=== PATIENT | female | born 1985 | race Hispanic/Latino ===

== ENCOUNTER 2019-05-19 13:28 | Inpatient (IN) | payer MEDICAID ==
--- NOTE | 2019-05-19 13:57 | Emergency Department Report ---
ED Seizure HPI - General Chief Complaint: Seizure Stated Complaint: SEIZURE Time Seen by Provider: 05/19/19 13:40 Source: patient, EMS Mode of arrival: Stretcher Limitations: No Limitations - History of Present Illness Initial Comments: Patient is a 33-year-old female that presents to the Emergency room for multiple seizures and seizure-like activity. Patient states she's had 35 seizures in the past 4 days. Patient states she was at her primary care's office today for her follow-up appointment and had a seizure and is waiting room and her primary care center to the ER for further evaluation. Patient states she has a known seizure history and she is compliant with all of her medications. Patient denies chest pain shortness of breath. Patient states she has panic attacks but these are seizures not panic attacks. Patient states she had another seizure on the way to the emergency room with EMS. Patient states she does not get confused after her seizures. Patient denies loss of bladder control. Patient denies any injuries from the seizure. Patient denies head trauma. MD Complaint: seizure, possible seizure, shaking -: Sudden Description of Episode: tonic-clonic movement -: second(s) Witnessed:: No Trauma: No Seizure History: known seizure disorder, compliant with medication Place: home, other Possible Precipitating Event: none Associated Symptoms: denies other symptoms. denies: chest pain, confusion, cough, diaphoresis, fever/chills, loss of appetite, malaise, rash, shortness of breath, syncope, weakness, tongue injury, shoulder dislocation Treatments Prior to Arrival: none - Related Data Home Medications Medication Instructions Recorded Confirmed Last Taken ARIPiprazole [Abilify TAB] 10 mg PO DAILY 09/13/15 09/13/15 Unknown Albuterol Sulfate [Albuterol 0.63% 90 mcg IH Q6HR PRN 09/13/15 09/13/15 Unknown NEBS] Carisoprodol [Soma] 350 mg PO TID 09/13/15 09/13/15 Unknown Cimetidine 300 mg PO BID 09/13/15 09/13/15 Unknown Clobetasol 0.05% [Temovate] 1 applic TRANSDERMA BID 09/13/15 09/13/15 Unknown Clobetasol/Skin Cleanser #28 1 applicatio TRANSDERMA TID 09/13/15 09/13/15 Unknown Cyanocobalamin [Vitamin B-12] 1,000 mcg IM QMONTH 09/13/15 09/13/15 Unknown Dicyclomine [Bentyl] 10 mg PO QID 09/13/15 09/13/15 Unknown Divalproex ER [Depakote ER] 500 mg PO BID 09/13/15 09/13/15 Unknown Mesalamine [Asacol Hd] 800 mg PO BID 09/13/15 09/13/15 Unknown Mesalamine [Asacol Hd] 800 mg PO TID 09/13/15 09/13/15 Unknown Mometasone/Formoterol [Dulera 100 2 puff IH BID 09/13/15 09/13/15 Unknown Mcg/5 Mcg Inhaler] Pantoprazole [Protonix INJ] 40 mg PO QDAY 09/13/15 09/13/15 Unknown Pravastatin Sodium [Pravastatin] 10 mg PO QHS 09/13/15 09/13/15 Unknown Sucralfate [Carafate] 1 gm PO Q6HR 09/13/15 09/13/15 Unknown Topiramate [Topamax] 25 mg PO BID 09/13/15 09/14/15 Unknown clonazePAM 0.5 mg PO TID 09/13/15 09/13/15 Unknown metOLazone [Metolazone] 2.5 mg PO QDAY 09/13/15 09/13/15 Unknown predniSONE [Deltasone] 20 mg PO DAILY 09/13/15 09/13/15 Unknown raNITIdine HCl [Zantac 300 MG TAB] 300 mg PO DAILY 09/13/15 09/13/15 Unknown Allergies Allergy/AdvReac Type Severity Reaction Status Date / Time latex Allergy Rash Verified 09/13/15 12:02 iodine AdvReac Severe Seizure Verified 09/13/15 12:02 ED Review of Systems ROS: Stated complaint: SEIZURE Other details as noted in HPI ED Past Medical Hx - Past Medical History Previous Medical History?: Yes Hx Congestive Heart Failure: No Hx Diabetes: No Hx GERD: Yes Hx Headaches / Migraines: Yes Hx Seizures: Yes Hx Psychiatric Treatment: Yes (eating disorders) Hx Asthma: Yes Hx COPD: No Additional medical history: anemia heart mumur. Crohn's. IBS - Surgical History Past Surgical History?: Yes Hx Cholecystectomy: Yes - Social History Smoking Status: Never Smoker Substance Use Type: None - Medications Home Medications: Home Medications Medication Instructions Recorded Confirmed Last Taken Type ARIPiprazole [Abilify TAB] 10 mg PO DAILY 09/13/15 09/13/15 Unknown History Albuterol Sulfate [Albuterol 0.63% 90 mcg IH Q6HR PRN 09/13/15 09/13/15 Unknown History NEBS] Carisoprodol [Soma] 350 mg PO TID 09/13/15 09/13/15 Unknown History Cimetidine 300 mg PO BID 09/13/15 09/13/15 Unknown History Clobetasol 0.05% [Temovate] 1 applic TRANSDERMA BID 09/13/15 09/13/15 Unknown History Clobetasol/Skin Cleanser #28 1 applicatio TRANSDERMA TID 09/13/15 09/13/15 Unknown History Cyanocobalamin [Vitamin B-12] 1,000 mcg IM QMONTH 09/13/15 09/13/15 Unknown History Dicyclomine [Bentyl] 10 mg PO QID 09/13/15 09/13/15 Unknown History Divalproex ER [Depakote ER] 500 mg PO BID 09/13/15 09/13/15 Unknown History Mesalamine [Asacol Hd] 800 mg PO BID 09/13/15 09/13/15 Unknown History Mesalamine [Asacol Hd] 800 mg PO TID 09/13/15 09/13/15 Unknown History Mometasone/Formoterol [Dulera 100 2 puff IH BID 09/13/15 09/13/15 Unknown Histor y Mcg/5 Mcg Inhaler] Pantoprazole [Protonix INJ] 40 mg PO QDAY 09/13/15 09/13/15 Unknown History Pravastatin Sodium [Pravastatin] 10 mg PO QHS 09/13/15 09/13/15 Unknown History Sucralfate [Carafate] 1 gm PO Q6HR 09/13/15 09/13/15 Unknown History Topiramate [Topamax] 25 mg PO BID 09/13/15 09/14/15 Unknown History clonazePAM 0.5 mg PO TID 09/13/15 09/13/15 Unknown History metOLazone [Metolazone] 2.5 mg PO QDAY 09/13/15 09/13/15 Unknown History predniSONE [Deltasone] 20 mg PO DAILY 09/13/15 09/13/15 Unknown History raNITIdine HCl [Zantac 300 MG TAB] 300 mg PO DAILY 09/13/15 09/13/15 Unknown History ED Physical Exam - General Limitations: No Limitations General appearance: alert, in no apparent distress - Head Head exam: Present: atraumatic, normocephalic - Eye Eye exam: Present: normal appearance - ENT ENT exam: Present: mucous membranes moist - Neck Neck exam: Present: normal inspection - Respiratory Respiratory exam: Present: normal lung sounds bilaterally. Absent: respiratory distress - Cardiovascular Cardiovascular Exam: Present: regular rate, normal rhythm. Absent: systolic murmur, diastolic murmur, rubs, gallop - GI/Abdominal GI/Abdominal exam: Present: soft, normal bowel sounds. Absent: distended, tenderness, guarding - Extremities Exam Extremities exam: Present: normal inspection - Back Exam Back exam: Present: normal inspection - Neurological Exam Neurological exam: Present: alert, oriented X3 - Psychiatric Psychiatric exam: Present: normal affect, normal mood - Skin Skin exam: Present: warm, dry, intact, normal color. Absent: rash ED Course Vital Signs 05/19/19 13:47 Temperature 98.6 F Pulse Rate 104 H Respiratory 18 Rate Blood Pressure 119/68 O2 Sat by Pulse 98 Oximetry - Reevaluation(s) Reevaluation #1: Patient has seizure activity that resolved on its own. Patient was not postictal and had no confusion. 05/19/19 15:01 Due to the amount of seizures the patient has had over the past week, patient will be admitted to her primary care service. Discussed all results with patient. Patient will be admitted to PCP. Patient agrees to plan of care. 05/19/19 15:28 - Consultations Consultation #1: Dr Marie consulted for admission. Dr Marie to admit patient. Dr. Marie to assume care patient. 05/19/19 15:29 ED Medical Decision Making - Lab Data Result diagrams: 05/19/19 14:08 05/19/19 14:08 - Medical Decision Making Patient is a 33-year-old female that presents to emergency room with multiple seizures. Patient has had 3 seizures today. Patient is total of 35 seizures over the past 4 days. Patient will be admitted to the patient's primary care service. Patient will require a neurology consult. - Differential Diagnosis seizure. Uncontrolled seizures. Critical care attestation.: If time is entered above; I have spent that time in minutes in the direct care of this critically ill patient, excluding procedure time. ED Disposition Clinical Impression: Seizure Uncontrolled seizures Qualifiers: Convulsion type: unspecified Qualified Code(s): R56.9 - Unspecified convulsions Disposition: OP ADMIT IP TO THIS HOSP Is pt being admited?: Yes Does the pt Need Aspirin: No Condition: Serious Time of Disposition: 15:33
[2019-05-19 14:24] LABS: Hematocrit 41.8 % (30.3-42.9); Mean Corpuscular HGB Conc 34 % (30-34); Mean Corpuscular Volume 89 fl (79-97); Platelet Count 265 K/mm3 (140-440); Red Cell Distribution Width 13.2 % (13.2-15.2)
[2019-05-19 14:41] LABS: BUN/Creatinine Ratio 8; Blood Urea Nitrogen 7 mg/dL (7-17); Calcium 8.5 mg/dL (8.4-10.2); Hemolysis Index 2
[2019-05-19] MEDS ORDERED: ATIVAN PO PRN (18:16)
--- NOTE | 2019-05-19 18:34 | History and Physical Report ---
History of Present Illness Date of examination: 05/19/19 Date of admission: 05/19/19 15:36 Chief complaint: Seizure d/o History of present illness: patient presented to the Office,for routine office visit, when she had epileptic type activity. EMS was called, and patient had another episode en route, as well as in the ER as per the ER doc. She is admitted for sxs control, and management. She sees DR Sergio bergeron, a neurologist, in [facility].She also has hx of multiple medical problems, including Inflamatory bowel Dz., and sees DR Brandon Lacy, GI.Will get a neurology consult, and order EEG, and check lytes./ including Mg+2 Past History Past Medical History: migraines, seizures Social history: single, lives with family Family history: no significant family history Medications and Allergies Allergies Allergy/AdvReac Type Severity Reaction Status Date / Time latex Allergy Rash Verified 09/13/15 12:02 iodine AdvReac Severe Seizure Verified 09/13/15 12:02 Home Medications Medication Instructions Recorded Confirmed Last Taken Type Pravastatin Sodium [Pravastatin] 30 mg PO QPM 09/13/15 05/19/19 Unknown History Topiramate [Topamax] 200 mg PO BID 09/13/15 05/19/19 05/19/19 History raNITIdine HCl [Zantac 300 MG TAB] 300 mg PO BID 09/13/15 05/19/19 Unknown History ALBUTEROL Inhaler (OR & NICU) 2 puff IH Q4H PRN 05/19/19 05/19/19 Unknown History [Proair] Acarbose [Precose] 25 mg PO TID 05/19/19 05/19/19 05/19/19 History Aspirin [Adult Aspirin] 81 mg PO QDAY 05/19/19 05/19/19 05/19/19 History Dicyclomine [Bentyl] 20 mg PO TID 05/19/19 05/19/19 Unknown History Divalproex [Sasha KATZ] 500 mg PO BID 05/19/19 05/19/19 05/19/19 History FLUoxetine [PROzac] 60 mg PO QAM 05/19/19 05/19/19 Unknown History Furosemide [Lasix] 20 mg PO QDAY 05/19/19 05/19/19 Unknown History LORazepam [Ativan] 1 mg PO TID PRN 05/19/19 05/19/19 Unknown History Levothyroxine [Synthroid] 75 mcg PO QAM 05/19/19 05/19/19 Unknown History Lisinopril [Zestril] 20 mg PO QDAY 05/19/19 05/19/19 Unknown History Mesalamine [Delzicol] 800 mg PO BID 05/19/19 05/19/19 Unknown History Mometasone/Formoterol [Dulera 100 2 puff IH BID 05/19/19 05/19/19 Unknown Histo ry Mcg/5 Mcg Inhaler] Verapamil [Calan] 240 mg PO QDAY 05/19/19 05/19/19 Unknown History amLODIPine [Norvasc] 5 mg PO DAILY 05/19/19 05/19/19 Unknown History cloNIDine-TTS PATCH [Catapres-Tts 1 patch TD Q7D 05/19/19 05/19/19 Unknown History 0.1MG Patch] l-Norgest/E.estradiol-E.estrad 1 each PO QPM 05/19/19 05/19/19 05/18/19 History [Seasonique 0.15-0.03-0.01 Tab] lamoTRIgine [LaMICtal] 50 mg PO BID 05/19/19 05/19/19 05/19/19 History Active Meds: Active Medications Amlodipine Besylate (Norvasc) 5 mg PO DAILY MARKIE Aspirin (Halfprin Ec) 81 mg PO QDAY MARKIE Clonidine HCl (Catapres-Tts Patch) 0.1 mg TD Q7D MARKIE Dicyclomine HCl (Bentyl) 20 mg PO TID MARKIE Divalproex Sodium (Depakote Dr) 500 mg PO BID MARKIE Fluoxetine HCl (Prozac) 60 mg PO QAM MARKIE Furosemide (Lasix) 20 mg PO QDAY MARKIE Lamotrigine (Lamictal) 50 mg PO BID MARKIE Levothyroxine Sodium (Synthroid) 75 mcg PO QAM MARKIE Lisinopril (Zestril) 20 mg PO QDAY MARKIE Lorazepam (Ativan) 1 mg PO TID PRN PRN Reason: Anxiety Mesalamine (Delzicol) 800 mg PO BID MARKIE Miscellaneous Medication (Acarbose [Precose]) 25 mg PO TID MARKIE Miscellaneous Medication (L-Norgest/E.Estradiol-E.Estrad [Seasonique 0.15-0.03-0.01 Tab]) 1 each PO QPM MARKIE Miscellaneous Medication (Mometasone/Formoterol [Dulera 100 Mcg/5 Mcg Inhaler]) 2 puff IH BID MARKIE Miscellaneous Medication (Pravastatin Sodium [Pravastatin]) 30 mg PO QPM MARKIE Miscellaneous Medication (Ranitidine Hcl [Zantac 300 Mg Tab]) 300 mg PO BID MARKIE Topiramate (Topamax) 200 mg PO BID MARKIE Verapamil HCl (Calan) 240 mg PO QDAY MARKIE Review of Systems Constitutional: weight gain Breasts: deferred Gastrointestinal: nausea, heartburn Neurological: seizures Exam - Constitutional Vitals: Temp Pulse Resp BP Pulse Ox 98.6 F 104 H 18 114/66 97 05/19/19 13:47 05/19/19 13:47 05/19/19 13:47 05/19/19 18:04 05/19/19 18:04 General appearance: Present: mild distress, well-nourished - EENT Eyes: Present: PERRL ENT: hearing intact, clear oral mucosa - Neck Neck: Present: supple, normal ROM - Respiratory Respiratory effort: normal Respiratory: bilateral: CTA - Cardiovascular Heart Sounds: Present: S1 & S2. Absent: rub, click - Extremities Extremities: pulses symmetrical, No edema Peripheral Pulses: within normal limits - Abdominal General gastrointestinal: Present: soft, non-tender, non-distended, normal bowel sounds Female genitourinary: Present: normal - Rectal Rectal Exam: deferred - Integumentary Integumentary: Present: clear, warm, dry - Musculoskeletal Musculoskeletal: gait normal, strength equal bilaterally - Psychiatric Psychiatric: appropriate mood/affect, intact judgment & insight - Neurologic Neurologic: CNII-XII intact, moves all extremities Results - Labs CBC & Chem 7: 05/19/19 14:08 05/19/19 14:08 Labs: Abnormal lab results 05/19/19 Range/Units 14:08 Carbon Dioxide 19 L (22-30) mmol/L Assessment and Plan - Patient Problems (1) Uncontrolled seizures Current Visit: Yes Status: Acute Qualifiers: Convulsion type: unspecified Qualified Code(s): R56.9 - Unspecified convulsions Plan to address problem: Neurology consult, EEG. (2) Crohns disease Current Visit: No Status: Chronic Plan to address problem: suportice care, consult GI if needed. (3) Weakness Current Visit: No Status: Acute Plan to address problem: supportive care.
[2019-05-19] MEDS ORDERED: CATAPRES-TTS PATCH TD SCH (19:30)
[2019-05-19] MEDS ORDERED: ACARBOSE 25 MG PO SCH (20:00)
[2019-05-19] MEDS: BROVANA NEBU IH SCH (20:09)
[2019-05-19] MEDS: PULMICORT IH SCH (20:09)
[2019-05-19] MEDS: BENTYL PO SCH (20:10)
[2019-05-19] MEDS ORDERED: NON-FORMULARY (Ranitidine Hcl [Zantac 300 Mg Tab] 300 MG) PO SCH (22:00)
[2019-05-19] MEDS ORDERED: NON-FORMULARY (Mometasone/Formoterol [Dulera 100 Mcg/5 Mcg Inhaler] 2 PUFF) IH SCH (22:00)
[2019-05-19] MEDS: D5/0.45NS 1,000 ML IV SCH (22:10)
[2019-05-19] MEDS: DELZICOL PO SCH (22:12)
[2019-05-19] MEDS: TOPAMAX PO SCH (22:13)
[2019-05-19] MEDS: PEPCID PO SCH (22:18)
[2019-05-19] MEDS: PRAVACHOL PO SCH (22:20)
[2019-05-19] MEDS: LaMICtal PO SCH (22:26)
[2019-05-20] MEDS: SYNTHROID PO SCH (05:38)
[2019-05-20] MEDS: LASIX PO SCH (05:39)
[2019-05-20] MEDS: D5/0.45NS 1,000 ML IV SCH ×3 (05:40→22:37)
[2019-05-20 06:50] LABS: Amorphous Crystals,Urine 3+; Bilirubin,Urine NEG (Negative); Blood,Urine NEG (Negative); Color,Urine Amber (Yellow); Mucus,Urine 1+ /HPF; Urobilinogen,Urine < 2.0 mg/dL (<2.0)
[2019-05-20 06:52] LABS: Granular Casts,Urine 10 /LPF; Hyaline Casts,Urine 23 /LPF
[2019-05-20 06:53] LABS: HCG Qualitative,Urine Negative (Negative)
[2019-05-20] MEDS: BROVANA NEBU IH SCH ×2 (08:01→19:25)
[2019-05-20] MEDS: PULMICORT IH SCH ×2 (08:01→19:25)
[2019-05-20] MEDS: TOPAMAX PO SCH ×2 (09:34→22:39)
[2019-05-20] MEDS: PROzac PO SCH (09:34)
[2019-05-20] MEDS: HALFPRIN EC PO SCH (09:35)
[2019-05-20] MEDS: NORVASC PO SCH (09:35)
[2019-05-20] MEDS: ZESTRIL PO SCH (09:35)
[2019-05-20] MEDS: PEPCID PO SCH ×2 (09:35→22:39)
[2019-05-20] MEDS: BENTYL PO SCH ×3 (09:36→20:18)
[2019-05-20] MEDS: DELZICOL PO SCH ×2 (09:36→22:38)
[2019-05-20] MEDS: CALAN SR PO SCH (09:37)
[2019-05-20] MEDS: LaMICtal PO SCH ×2 (09:37→22:38)
[2019-05-20] MEDS: NON-FORMULARY PO SCH ×3 (09:38→20:19)
[2019-05-20] MEDS ORDERED: CALAN PO SCH (10:00)
[2019-05-20] MEDS ORDERED: LASIX PO SCH (10:00)
--- NOTE | 2019-05-20 15:16 | Progress Note ---
Assessment and Plan - Patient Problems (1) Uncontrolled seizures Current Visit: Yes Status: Acute Qualifiers: Convulsion type: unspecified Qualified Code(s): R56.9 - Unspecified convulsions Plan to address problem: Neurology consult, EEG. (2) Crohns disease Current Visit: No Status: Chronic Plan to address problem: suportice care, consult GI if needed. (3) Weakness Current Visit: No Status: Acute Plan to address problem: supportive care. Subjective Date of service: 05/20/19 Principal diagnosis: SEIZURE activity. Interval history: Patient seen/examined, resting in bed, labs reviewed, EEG not done, and no neurology to see patient.Will see if DR Yaa arora akil;bev see patient, and render opinion. Objective - Constitutional Vitals: Vital Signs - 12hr 05/20/19 05/20/19 05/20/19 05:44 05:58 08:00 Temperature 98.5 F 98.5 F Pulse Rate 80 80 Pulse Rate [ 80 Posterior Bilateral Throughout] Respiratory 24 24 Rate Respiratory 25 H Rate [Posterior Bilateral Throughout] Blood Pressure 103/54 Blood Pressure 103/54 [Left] O2 Sat by Pulse 100 100 Oximetry 05/20/19 05/20/19 05/20/19 08:10 10:42 12:12 Temperature 98.1 F Pulse Rate 88 Pulse Rate [ 82 Posterior Bilateral Throughout] Respiratory 18 Rate Respiratory 18 Rate [Posterior Bilateral Throughout] Blood Pressure 109/67 Blood Pressure [Left] O2 Sat by Pulse 100 100 Oximetry General appearance: Present: no acute distress, well-nourished - EENT Eyes: PERRL, EOM intact ENT: hearing intact, clear oral mucosa Ears: bilateral: normal - Neck Neck: supple, normal ROM - Respiratory Respiratory: bilateral: CTA - Breasts Breasts: deferred - Cardiovascular Rhythm: regular Heart Sounds: Present: S1 & S2. Absent: gallop, rub Extremities: pulses intact, No edema, normal color, Full ROM - Gastrointestinal General gastrointestinal: Present: soft, non-tender, non-distended, normal bowel sounds Rectal Exam: deferred - Genitourinary Female genitourinary: deferred - Integumentary Integumentary: clear, warm, dry - Musculoskeletal Musculoskeletal: 1, strength equal bilaterally - Neurologic Neurologic: moves all extremities - Psychiatric Psychiatric: memory intact, appropriate mood/affect, intact judgment & insight - Labs CBC & Chem 7: 05/19/19 14:08 05/19/19 14:08 Labs: Abnormal lab results 05/19/19 Range/Units 06:00 Urine pH 8.0 H (5.0-7.0) U Epithel Cells (Auto) 15.0 H (0-13.0) /HPF Medications & Allergies - Medications Allergies/Adverse Reactions: Allergies latex Allergy (Verified 09/13/15 12:02) Rash iodine Adverse Reaction (Severe, Verified 09/13/15 12:02) Seizure Home Medications: Home Medications Medication Instructions Recorded Confirmed Last Taken Type Pravastatin Sodium [Pravastatin] 30 mg PO QPM 09/13/15 05/19/19 Unknown History Topiramate [Topamax] 200 mg PO BID 09/13/15 05/19/19 05/19/19 History raNITIdine HCl [Zantac 300 MG TAB] 300 mg PO BID 09/13/15 05/19/19 Unknown History ALBUTEROL Inhaler (OR & NICU) 2 puff IH Q4H PRN 05/19/19 05/19/19 Unknown History [Proair] Acarbose [Precose] 25 mg PO TID 05/19/19 05/19/19 05/19/19 History Aspirin [Adult Aspirin] 81 mg PO QDAY 05/19/19 05/19/19 05/19/19 History Dicyclomine [Bentyl] 20 mg PO TID 05/19/19 05/19/[address] [DepErlinda DR] 500 mg PO BID 05/19/19 05/19/19 05/19/19 History FLUoxetine [PROzac] 60 mg PO QAM 05/19/19 05/19/19 Unknown History Furosemide [Lasix] 20 mg PO QDAY 05/19/19 05/19/19 Unknown History LORazepam [Ativan] 1 mg PO TID PRN 05/19/19 05/19/19 Unknown History Levothyroxine [Synthroid] 75 mcg PO QAM 05/19/19 05/19/19 Unknown History Lisinopril [Zestril] 20 mg PO QDAY 05/19/19 05/19/19 Unknown History Mesalamine [Delzicol] 800 mg PO BID 05/19/19 05/19/19 Unknown History Mometasone/Formoterol [Dulera 100 2 puff IH BID 05/19/19 05/19/19 Unknown History Mcg/5 Mcg Inhaler] Verapamil [Calan] 240 mg PO QDAY 05/19/19 05/19/19 Unknown History amLODIPine [Norvasc] 5 mg PO DAILY 05/19/19 05/19/19 Unknown History cloNIDine-TTS PATCH [Catapres-Tts 1 patch TD Q7D 05/19/19 05/19/19 Unknown History 0.1MG Patch] l-Norgest/E.estradiol-E.estrad 1 each PO QPM 05/19/19 05/19/19 05/18/19 History [Seasonique 0.15-0.03-0.01 Tab] lamoTRIgine [LaMICtal] 50 mg PO BID 05/19/19 05/19/19 05/19/19 History Active Medications: Generic Name Dose Route Start Last Admin Trade Name Freq PRN Reason Stop Dose Admin Amlodipine Besylate 5 mg 05/20/19 10:00 05/20/19 09:35 Norvasc PO 5 mg DAILY MARKIE Administration Arformoterol Tartrate 15 mcg 05/19/19 20:00 05/20/19 08:01 Brovana Nebu IH 15 mcg Q12HRT MARKIE Administration Aspirin 81 mg 05/20/19 10:00 05/20/19 09:35 Halfprin Ec PO 81 mg QDAY MARKIE Administration Budesonide 0.5 mg 05/19/19 20:00 05/20/19 08:01 Pulmicort IH 0.5 mg Q12HRT MARKIE Administration Clonidine HCl 0.1 mg 05/19/19 19:30 Catapres-Tts Patch TD Q7D MARKIE Dicyclomine HCl 20 mg 05/19/19 20:00 05/20/19 13:25 Bentyl PO 20 mg TID MARKIE Administration Divalproex Sodium 500 mg 05/19/19 22:00 05/20/19 09:[address] PO 500 mg BID MARKIE Administration Famotidine 20 mg 05/19/19 22:00 05/20/19 09:35 Pepcid PO 20 mg BID MARKIE Administration Fluoxetine HCl 60 mg 05/20/19 10:00 05/20/19 09:34 Prozac PO 60 mg QAM MARKIE Administration Furosemide 20 mg 05/20/19 06:00 05/20/19 05:39 Lasix PO Not Given DAILY@0600 MARKIE Dextrose/Sodium Chloride 1,000 mls @ 125 mls/hr 05/19/19 20:00 05/20/19 15:02 D5/0.45ns IV 125 mls/hr DIRECT MARKIE Administration Lamotrigine 50 mg 05/19/19 22:00 05/20/19 09:37 Lamictal PO 50 mg BID MARKIE Administration Levothyroxine Sodium 75 mcg 05/20/19 06:00 05/20/19 05:38 Synthroid PO 75 mcg DAILY@0600 MARKIE Administration Lisinopril 20 mg 05/20/19 10:00 05/20/19 09:35 Zestril PO 20 mg QDAY MARKIE Administration Lorazepam 1 mg 05/19/19 18:16 05/19/19 23:19 Ativan PO 1 mg TID PRN Administration Anxiety Mesalamine 800 mg 05/19/19 22:00 05/20/19 09:36 Delzicol PO 800 mg BID MARKIE Administration Miscellaneous Medication 1 each 05/20/19 18:00 L-Norgest/E.Estradiol-E.Estrad [Seasonique 0.15-0.03-0.01 Tab] PO QPM MARKIE Miscellaneous Medication 1 each 05/20/19 08:00 05/20/19 15:02 Non-Formulary PO 1 each TID MARKIE Administration Pravastatin Sodium 30 mg 05/19/19 22:00 05/19/19 22:20 Pravachol PO 30 mg QHS MARKIE Administration Topiramate 200 mg 05/19/19 22:00 05/20/19 09:34 Topamax PO 200 mg BID MARKIE Administration Verapamil HCl 240 mg 05/20/19 10:00 05/20/19 09:37 Calan Sr PO 240 mg DAILY MARKIE Administration
[2019-05-20] MEDS ORDERED: E ESTRADIOL E ESTRAD PO SCH (18:00)
[2019-05-20] MEDS ORDERED: NORGEST PO SCH (18:00)
[2019-05-20] MEDS ORDERED: PRAVASTATIN SODIUM PO SCH (18:00)
[2019-05-20] MEDS: PRAVACHOL PO SCH (22:38)
[2019-05-21] MEDS: LASIX PO SCH (05:30)
[2019-05-21] MEDS: SYNTHROID PO SCH (05:32)
[2019-05-21] MEDS: D5/0.45NS 1,000 ML IV SCH ×3 (05:35→16:34)
[2019-05-21] MEDS: PULMICORT IH SCH ×2 (08:22→19:49)
[2019-05-21] MEDS: BROVANA NEBU IH SCH ×2 (08:22→19:49)
[2019-05-21] MEDS: BENTYL PO SCH ×3 (09:34→20:39)
[2019-05-21] MEDS: PEPCID PO SCH ×2 (09:34→22:23)
[2019-05-21] MEDS: PROzac PO SCH (09:35)
[2019-05-21] MEDS: HALFPRIN EC PO SCH (09:35)
[2019-05-21] MEDS: LaMICtal PO SCH ×2 (09:35→22:23)
[2019-05-21] MEDS: NON-FORMULARY PO SCH ×3 (09:36→20:39)
[2019-05-21] MEDS: NORVASC PO SCH (09:36)
[2019-05-21] MEDS: CALAN SR PO SCH (09:38)
[2019-05-21] MEDS: TOPAMAX PO SCH ×2 (09:38→22:23)
[2019-05-21] MEDS: ZESTRIL PO SCH (09:38)
[2019-05-21] MEDS: DELZICOL PO SCH ×2 (09:39→22:20)
--- NOTE | 2019-05-21 13:50 | Progress Note ---
Subjective Date of service: 05/21/19 Principal diagnosis: SEIZURE activity. Interval history: made note of the PMH has panic but on abilify the hx in the ED multiple spells nopt like opanic could be seizure plan EEG and further w/u on multiple mds would think that depakote would act as anticonvulsant IMO Objective - Vital Sign Vital Signs - 12hr 05/21/19 05/21/19 05/21/19 05:43 08:22 08:32 Temperature 98.4 F Pulse Rate 92 H Pulse Rate [ 93 H 94 H Posterior Bilateral Throughout] Respiratory 16 Rate Respiratory 18 18 Rate [Posterior Bilateral Throughout] Blood Pressure 116/78 O2 Sat by Pulse 96 Oximetry 05/21/19 05/21/19 08:37 11:18 Temperature 97.8 F Pulse Rate 93 H Pulse Rate [ Posterior Bilateral Throughout] Respiratory 18 Rate Respiratory Rate [Posterior Bilateral Throughout] Blood Pressure 130/81 O2 Sat by Pulse 100 97 Oximetry - Laboratory Findings CBC and BMP: 05/19/19 14:08 05/19/19 14:08 Abnormal Lab Findings: Abnormal Labs 05/19/19 05/19/19 06:00 14:08 Carbon Dioxide 19 L Urine pH 8.0 H U Epithel Cells (Auto) 15.0 H
--- NOTE | 2019-05-21 15:40 | Progress Note ---
Assessment and Plan - Patient Problems (1) Uncontrolled seizures Current Visit: Yes Status: Acute Qualifiers: Convulsion type: unspecified Qualified Code(s): R56.9 - Unspecified convulsions Plan to address problem: Neurology consult, EEG. (2) Crohns disease Current Visit: No Status: Chronic Plan to address problem: suportice care, consult GI if needed. (3) Weakness Current Visit: No Status: Acute Plan to address problem: supportive care. Subjective Date of service: 05/21/19 Principal diagnosis: SEIZURE activity. Interval history: Patient seen/examined, resting in bed, labs reviewed, EEG not done, and no neurology to see patient.Will see if DR Yaa arora akil;bev see patient, and render opinion. patient seen/examined, resting in bed, labs reviewed, neurology saw patient, awaiting his recommendation.me. No new issues, or complaints at this time.Will d/c home ,once ok with neurology. Objective - Constitutional Vitals: Vital Signs - 12hr 05/21/19 05/21/19 05/21/19 05:43 08:22 08:32 Temperature 98.4 F Pulse Rate 92 H Pulse Rate [ 93 H 94 H Posterior Bilateral Throughout] Respiratory 16 Rate Respiratory 18 18 Rate [Posterior Bilateral Throughout] Blood Pressure 116/78 O2 Sat by Pulse 96 Oximetry 05/21/19 05/21/19 08:37 11:18 Temperature 97.8 F Pulse Rate 93 H Pulse Rate [ Posterior Bilateral Throughout] Respiratory 18 Rate Respiratory Rate [Posterior Bilateral Throughout] Blood Pressure 130/81 O2 Sat by Pulse 100 97 Oximetry General appearance: Present: no acute distress, well-nourished - EENT Eyes: PERRL, EOM intact ENT: hearing intact, clear oral mucosa Ears: bilateral: normal - Neck Neck: supple, normal ROM - Respiratory Respiratory effort: normal Respiratory: bilateral: CTA - Breasts Breasts: deferred - Cardiovascular Rhythm: regular Heart Sounds: Present: S1 & S2. Absent: gallop, rub Extremities: pulses intact, No edema, normal color, Full ROM - Gastrointestinal General gastrointestinal: Present: soft, non-tender, non-distended, normal bowel sounds Rectal Exam: deferred - Genitourinary Female genitourinary: deferred - Integumentary Integumentary: clear, warm, dry - Musculoskeletal Musculoskeletal: 1, strength equal bilaterally - Neurologic Neurologic: moves all extremities - Psychiatric Psychiatric: memory intact, appropriate mood/affect, intact judgment & insight - Labs CBC & Chem 7: 05/19/19 14:08 05/19/19 14:08 Medications & Allergies - Medications Allergies/Adverse Reactions: Allergies latex Allergy (Verified 09/13/15 12:02) Rash iodine Adverse Reaction (Severe, Verified 09/13/15 12:02) Seizure Home Medications: Home Medications Medication Instructions Recorded Confirmed Last Taken Type Pravastatin Sodium [Pravastatin] 30 mg PO QPM 09/13/15 05/19/19 Unknown History Topiramate [Topamax] 200 mg PO BID 09/13/15 05/19/19 05/19/19 History raNITIdine HCl [Zantac 300 MG TAB] 300 mg PO BID 09/13/15 05/19/19 Unknown History ALBUTEROL Inhaler (OR & NICU) 2 puff IH Q4H PRN 05/19/19 05/19/19 Unknown History [Proair] Acarbose [Precose] 25 mg PO TID 05/19/19 05/19/19 05/19/19 History Aspirin [Adult Aspirin] 81 mg PO QDAY 05/19/19 05/19/19 05/19/19 History Dicyclomine [Bentyl] 20 mg PO TID 05/19/19 05/19/19 Unknown History Divalproex [Sasha KATZ] 500 mg PO BID 05/19/19 05/19/19 05/19/19 History FLUoxetine [PROzac] 60 mg PO QAM 05/19/19 05/19/19 Unknown History Furosemide [Lasix] 20 mg PO QDAY 05/19/19 05/19/19 Unknown History LORazepam [Ativan] 1 mg PO TID PRN 05/19/19 05/19/19 Unknown History Levothyroxine [Synthroid] 75 mcg PO QAM 05/19/19 05/19/19 Unknown History Lisinopril [Zestril] 20 mg PO QDAY 05/19/19 05/19/19 Unknown History Mesalamine [Delzicol] 800 mg PO BID 05/19/19 05/19/19 Unknown History Mometasone/Formoterol [Dulera 100 2 puff IH BID 05/19/19 05/19/19 Unknown History Mcg/5 Mcg Inhaler] Verapamil [Calan] 240 mg PO QDAY 05/19/19 05/19/19 Unknown History amLODIPine [Norvasc] 5 mg PO DAILY 05/19/19 05/19/19 Unknown History cloNIDine-TTS PATCH [Catapres-Tts 1 patch TD Q7D 05/19/19 05/19/19 Unknown History 0.1MG Patch] l-Norgest/E.estradiol-E.estrad 1 each PO QPM 05/19/19 05/19/19 05/18/19 History [Seasonique 0.15-0.03-0.01 Tab] lamoTRIgine [LaMICtal] 50 mg PO BID 05/19/19 05/19/19 05/19/19 History Active Medications: Generic Name Dose Route Start Last Admin Trade Name Freq PRN Reason Stop Dose Admin Amlodipine Besylate 5 mg 05/20/19 10:00 05/21/19 09:36 Norvasc PO 5 mg DAILY MARKIE Administration Arformoterol Tartrate 15 mcg 05/19/19 20:00 05/21/19 08:22 Brovana Nebu IH 15 mcg Q12HRT MARKIE Administration Aspirin 81 mg 05/20/19 10:00 05/21/19 09:35 Halfprin Ec PO 81 mg QDAY MARKIE Administration Budesonide 0.5 mg 05/19/19 20:00 05/21/19 08:22 Pulmicort IH 0.5 mg Q12HRT MARKIE Administration Clonidine HCl 0.1 mg 05/19/19 19:30 Catapres-Tts Patch TD Q7D MARKIE Dicyclomine HCl 20 mg 05/19/19 20:00 05/21/19 09:34 Bentyl PO 20 mg TID MARKIE Administration Divalproex Sodium 500 mg 05/19/19 22:00 05/21/19 09:[address] PO 500 mg BID MARKIE Administration Famotidine 20 mg 05/19/19 22:00 05/21/19 09:34 Pepcid PO 20 mg BID MARKIE Administration Fluoxetine HCl 60 mg 05/20/19 10:00 05/21/19 09:35 Prozac PO 60 mg QAM MARKIE Administration Furosemide 20 mg 05/20/19 06:00 05/21/19 05:30 Lasix PO Not Given DAILY@0600 MARKIE Dextrose/Sodium Chloride 1,000 mls @ 125 mls/hr 05/19/19 20:00 05/21/19 09:34 D5/0.45ns IV 125 mls/hr DIRECT MARKIE Administration Lamotrigine 50 mg 05/19/19 22:00 05/21/19 09:35 Lamictal PO 50 mg BID MARKIE Administration Levothyroxine Sodium 75 mcg 05/20/19 06:00 05/21/19 05:32 Synthroid PO 75 mcg DAILY@0600 MARKIE Administration Lisinopril 20 mg 05/20/19 10:00 05/21/19 09:38 Zestril PO 20 mg QDAY MARKIE Administration Lorazepam 1 mg 05/19/19 18:16 05/19/19 23:19 Ativan PO 1 mg TID PRN Administration Anxiety Mesalamine 800 mg 05/19/19 22:00 05/21/19 09:39 Delzicol PO 800 mg BID MARKIE Administration Miscellaneous Medication 1 each 05/20/19 18:00 L-Norgest/E.Estradiol-E.Estrad [Seasonique 0.15-0.03-0.01 Tab] PO QPM MARKIE Miscellaneous Medication 1 each 05/20/19 08:00 05/21/19 09:36 Non-Formulary PO 1 each TID MARKIE Administration Pravastatin Sodium 30 mg 05/19/19 22:00 05/20/19 22:38 Pravachol PO 30 mg QHS MARKIE Administration Topiramate 200 mg 05/19/19 22:00 05/21/19 09:38 Topamax PO 200 mg BID MARKIE Administration Verapamil HCl 240 mg 05/20/19 10:00 05/21/19 09:38 Calan Sr PO 240 mg DAILY MARKIE Administration
[2019-05-21] MEDS: PRAVACHOL PO SCH (22:21)
[2019-05-22] MEDS: D5/0.45NS 1,000 ML IV SCH ×2 (04:52→22:21)
[2019-05-22] MEDS: SYNTHROID PO SCH (05:08)
[2019-05-22] MEDS: LASIX PO SCH (05:09)
[2019-05-22] MEDS: BROVANA NEBU IH SCH ×2 (08:39→20:03)
[2019-05-22] MEDS: PULMICORT IH SCH ×2 (08:39→20:03)
[2019-05-22] MEDS: NON-FORMULARY PO SCH ×3 (09:33→22:10)
[2019-05-22] MEDS: PROzac PO SCH (09:34)
[2019-05-22] MEDS: HALFPRIN EC PO SCH (09:35)
[2019-05-22] MEDS: NORVASC PO SCH (09:35)
[2019-05-22] MEDS: BENTYL PO SCH ×3 (09:36→22:07)
[2019-05-22] MEDS: ZESTRIL PO SCH (09:36)
[2019-05-22] MEDS: PEPCID PO SCH ×2 (09:37→22:07)
[2019-05-22] MEDS: TOPAMAX PO SCH ×2 (09:38→22:08)
[2019-05-22] MEDS: LaMICtal PO SCH ×2 (09:40→22:09)
[2019-05-22] MEDS: DELZICOL PO SCH ×2 (09:41→22:18)
[2019-05-22] MEDS: CALAN SR PO SCH (09:42)
--- NOTE | 2019-05-22 16:57 | Progress Note ---
Subjective Date of service: 05/22/19 Principal diagnosis: SEIZURE activity. Interval history: patient had recent hx of excesssive amount of valproic acid is system will check level suspect complicated psychological issues Objective - Vital Sign Vital Signs - 12hr 05/22/19 05/22/19 05/22/19 05:16 08:41 09:02 Temperature 97.9 F Pulse Rate 89 Pulse Rate [ 84 95 H Posterior Bilateral Throughout] Respiratory 20 Rate Respiratory 18 18 Rate [Posterior Bilateral Throughout] Blood Pressure 113/76 O2 Sat by Pulse 99 99 Oximetry 05/22/19 05/22/19 05/22/19 09:35 09:36 09:42 Temperature Pulse Rate 89 89 Pulse Rate [ Posterior Bilateral Throughout] Respiratory Rate Respiratory Rate [Posterior Bilateral Throughout] Blood Pressure 113/76 113/76 113/76 O2 Sat by Pulse Oximetry 05/22/19 12:20 Temperature 98.5 F Pulse Rate 99 H Pulse Rate [ Posterior Bilateral Throughout] Respiratory 16 Rate Respiratory Rate [Posterior Bilateral Throughout] Blood Pressure 130/69 O2 Sat by Pulse 99 Oximetry - Laboratory Findings CBC and BMP: 05/19/19 14:08 05/19/19 14:08 Abnormal Lab Findings: Abnormal Labs 05/19/19 05/19/19 06:00 14:08 Carbon Dioxide 19 L Urine pH 8.0 H U Epithel Cells (Auto) 15.0 H
--- NOTE | 2019-05-22 20:29 | Progress Note ---
Assessment and Plan - Patient Problems (1) Uncontrolled seizures Current Visit: Yes Status: Acute Qualifiers: Convulsion type: unspecified Qualified Code(s): R56.9 - Unspecified convulsions Plan to address problem: Neurology consult, EEG. see notes above. (2) Crohns disease Current Visit: No Status: Chronic Plan to address problem: supportive care, consult GI if needed. Stable GI mensah. (3) Weakness Current Visit: No Status: Acute Plan to address problem: supportive care. Subjective Date of service: 05/22/19 Principal diagnosis: SEIZURE activity. Interval history: Patient seen/examined, resting in bed, labs reviewed, EEG not done, and no neurology to see patient.Will see if DR Yaa arora akilliz see patient, and render opinion. patient seen/examined, resting in bed, labs reviewed, neurology saw patient, awaiting his recommendation.me. No new issues, or complaints at this time.Will d/c home ,once ok with neurology. patient seen/examined, resting in bed, c/o head ache, meds given, patient seen b y neurology again today, notes reviewed. EEG was scheduled , perhaps done today, awaiting readings from Neurology. Also will d/c home, once ok with Neurology. Objective - Constitutional Vitals: Vital Signs - 12hr 05/22/19 05/22/19 05/22/19 08:41 09:02 09:35 Temperature Pulse Rate 89 Pulse Rate [ 84 95 H Posterior Bilateral Throughout] Respiratory Rate Respiratory 18 18 Rate [Posterior Bilateral Throughout] Blood Pressure 113/76 O2 Sat by Pulse 99 Oximetry 05/22/19 05/22/19 05/22/19 09:36 09:42 12:20 Temperature 98.5 F Pulse Rate 89 99 H Pulse Rate [ Posterior Bilateral Throughout] Respiratory 16 Rate Respiratory Rate [Posterior Bilateral Throughout] Blood Pressure 113/76 113/76 130/69 O2 Sat by Pulse 99 Oximetry 05/22/19 05/22/19 05/22/19 16:46 20:05 20:07 Temperature 98.6 F Pulse Rate 97 H Pulse Rate [ 94 H Posterior Bilateral Throughout] Respiratory 22 Rate Respiratory 18 Rate [Posterior Bilateral Throughout] Blood Pressure 128/85 O2 Sat by Pulse 98 98 Oximetry 05/22/19 20:17 Temperature Pulse Rate Pulse Rate [ 98 H Posterior Bilateral Throughout] Respiratory Rate Respiratory 20 Rate [Posterior Bilateral Throughout] Blood Pressure O2 Sat by Pulse Oximetry General appearance: Present: mild distress, well-nourished - EENT Eyes: PERRL, EOM intact ENT: hearing intact, clear oral mucosa Ears: bilateral: normal - Neck Neck: supple, normal ROM - Respiratory Respiratory effort: normal Respiratory: bilateral: CTA - Breasts Breasts: deferred - Cardiovascular Rhythm: regular Heart Sounds: Present: S1 & S2. Absent: gallop, rub Extremities: pulses intact, No edema, normal color, Full ROM - Gastrointestinal General gastrointestinal: Present: soft, non-tender, non-distended, normal bowel sounds Rectal Exam: deferred - Genitourinary Female genitourinary: deferred - Integumentary Integumentary: clear, warm, dry - Musculoskeletal Musculoskeletal: 1, strength equal bilaterally - Neurologic Neurologic: moves all extremities - Psychiatric Psychiatric: memory intact, appropriate mood/affect, intact judgment & insight - Labs CBC & Chem 7: 05/19/19 14:08 05/19/19 14:08 Medications & Allergies - Medications Allergies/Adverse Reactions: Allergies latex Allergy (Verified 09/13/15 12:02) Rash iodine Adverse Reaction (Severe, Verified 09/13/15 12:02) Seizure Home Medications: Home Medications Medication Instructions Recorded Confirmed Last Taken Type Pravastatin Sodium [Pravastatin] 30 mg PO QPM 09/13/15 05/19/19 Unknown History Topiramate [Topamax] 200 mg PO BID 09/13/15 05/19/19 05/19/19 History raNITIdine HCl [Zantac 300 MG TAB] 300 mg PO BID 09/13/15 05/19/19 Unknown History ALBUTEROL Inhaler (OR & NICU) 2 puff IH Q4H PRN 05/19/19 05/19/19 Unknown History [Proair] Acarbose [Precose] 25 mg PO TID 05/19/19 05/19/19 05/19/19 History Aspirin [Adult Aspirin] 81 mg PO QDAY 05/19/19 05/19/19 05/19/19 History Dicyclomine [Bentyl] 20 mg PO TID 05/19/19 05/19/[address] [DepAugustaTE DR] 500 mg PO BID 05/19/19 05/19/19 05/19/19 History FLUoxetine [PROzac] 60 mg PO QAM 05/19/19 05/19/19 Unknown History Furosemide [Lasix] 20 mg PO QDAY 05/19/19 05/19/19 Unknown History LORazepam [Ativan] 1 mg PO TID PRN 05/19/19 05/19/19 Unknown History Levothyroxine [Synthroid] 75 mcg PO QAM 05/19/19 05/19/19 Unknown History Lisinopril [Zestril] 20 mg PO QDAY 05/19/19 05/19/19 Unknown History Mesalamine [Delzicol] 800 mg PO BID 05/19/19 05/19/19 Unknown History Mometasone/Formoterol [Dulera 100 2 puff IH BID 05/19/19 05/19/19 Unknown History Mcg/5 Mcg Inhaler] Verapamil [Calan] 240 mg PO QDAY 05/19/19 05/19/19 Unknown History amLODIPine [Norvasc] 5 mg PO DAILY 05/19/19 05/19/19 Unknown History cloNIDine-TTS PATCH [Catapres-Tts 1 patch TD Q7D 05/19/19 05/19/19 Unknown History 0.1MG Patch] l-Norgest/E.estradiol-E.estrad 1 each PO QPM 05/19/19 05/19/19 05/18/19 History [Seasonique 0.15-0.03-0.01 Tab] lamoTRIgine [LaMICtal] 50 mg PO BID 05/19/19 05/19/19 05/19/19 History Active Medications: Generic Name Dose Route Start Last Admin Trade Name Mikeyq PRN Reason Stop Dose Admin Amlodipine Besylate 5 mg 05/20/19 10:00 05/22/19 09:35 Norvasc PO 5 mg DAILY MARKIE Administration Arformoterol Tartrate 15 mcg 05/19/19 20:00 05/22/19 20:03 Brovana Nebu IH 15 mcg Q12HRT MARKIE Administration Aspirin 81 mg 05/20/19 10:00 05/22/19 09:35 Halfprin Ec PO 81 mg QDAY MARKIE Administration Budesonide 0.5 mg 05/19/19 20:00 05/22/19 20:03 Pulmicort IH 0.5 mg Q12HRT MARKIE Administration Clonidine HCl 0.1 mg 05/19/19 19:30 Catapres-Tts Patch TD Q7D MARKIE Dicyclomine HCl 20 mg 05/19/19 20:00 05/22/19 16:55 Bentyl PO 20 mg TID MARKIE Administration Divalproex Sodium 500 mg 05/19/19 22:00 05/22/19 09:[address] PO 500 mg BID MARKIE Administration Famotidine 20 mg 05/19/19 22:00 05/22/19 09:37 Pepcid PO 20 mg BID MARKIE Administration Fluoxetine HCl 60 mg 05/20/19 10:00 05/22/19 09:34 Prozac PO 60 mg QAM MARKIE Administration Furosemide 20 mg 05/20/19 06:00 05/22/19 05:09 Lasix PO 20 mg DAILY@0600 MARKIE Administration Dextrose/Sodium Chloride 1,000 mls @ 125 mls/hr 05/19/19 20:00 05/22/19 04:52 D5/0.45ns IV 125 mls/hr DIRECT MARKIE Administration Lamotrigine 50 mg 05/19/19 22:00 05/22/19 09:40 Lamictal PO 50 mg BID MARKIE Administration Levothyroxine Sodium 75 mcg 05/20/19 06:00 05/22/19 05:08 Synthroid PO 75 mcg DAILY@0600 MARKIE Administration Lisinopril 20 mg 05/20/19 10:00 05/22/19 09:36 Zestril PO 20 mg QDAY MARKIE Administration Lorazepam 1 mg 05/19/19 18:16 05/19/19 23:19 Ativan PO 1 mg TID PRN Administration Anxiety Mesalamine 800 mg 05/19/19 22:00 05/22/19 09:41 Delzicol PO 800 mg BID MARKIE Administration Miscellaneous Medication 1 each 05/20/19 08:00 05/22/19 16:55 Non-Formulary PO 1 each TID MARKIE Administration Pravastatin Sodium 30 mg 05/19/19 22:00 05/21/19 22:21 Pravachol PO 30 mg QHS MARKIE Administration Topiramate 200 mg 05/19/19 22:00 05/22/19 09:38 Topamax PO 200 mg BID MARKIE Administration Verapamil HCl 240 mg 05/20/19 10:00 05/22/19 09:42 Calan Sr PO 240 mg DAILY MARKIE Administration
[2019-05-22] MEDS: PRAVACHOL PO SCH (22:06)
[2019-05-23] MEDS: LASIX PO SCH (05:13)
[2019-05-23] MEDS: SYNTHROID PO SCH (05:13)
[2019-05-23] MEDS: D5/0.45NS 1,000 ML IV SCH ×2 (06:33→16:45)
--- NOTE | 2019-05-23 08:18 | Progress Note ---
Subjective Date of service: 05/23/19 Principal diagnosis: SEIZURE activity. Interval history: CPK is normal therefore doubt there were severe convulsions the Valproic acid level is 84 which is optimal for seeizure control patient can follow up in office valproate adequate for seizure control and level is excellent Objective - Vital Sign Vital Signs - 12hr 05/22/19 05/23/19 22:46 06:35 Temperature 98.6 F 98.3 F Pulse Rate 105 H 98 H Respiratory 20 20 Rate Blood Pressure 137/89 118/87 O2 Sat by Pulse 96 99 Oximetry - Laboratory Findings CBC and BMP: 05/19/19 14:08 05/19/19 14:08 Abnormal Lab Findings: Abnormal Labs 05/19/19 05/19/19 06:00 14:08 Carbon Dioxide 19 L Urine pH 8.0 H U Epithel Cells (Auto) 15.0 H
[2019-05-23] MEDS: PULMICORT IH SCH ×2 (08:40→20:17)
[2019-05-23] MEDS: BROVANA NEBU IH SCH (08:40)
[2019-05-23] MEDS: DELZICOL PO SCH (09:29)
[2019-05-23] MEDS: HALFPRIN EC PO SCH (09:29)
[2019-05-23] MEDS: BENTYL PO SCH ×2 (09:30→16:45)
[2019-05-23] MEDS: NON-FORMULARY PO SCH ×3 (09:30→20:17)
[2019-05-23] MEDS: PROzac PO SCH (09:30)
[2019-05-23] MEDS: LaMICtal PO SCH (09:30)
[2019-05-23] MEDS: PEPCID PO SCH (09:31)
[2019-05-23] MEDS: ZESTRIL PO SCH (09:31)
[2019-05-23] MEDS: TOPAMAX PO SCH (09:31)
[2019-05-23] MEDS: CALAN SR PO SCH (09:32)
[2019-05-23] MEDS: NORVASC PO SCH (09:32)
[2019-05-23 17:07] VITALS: BP 111/72
--- NOTE | 2019-05-23 19:11 | Discharge Summary ---
Providers - Providers Date of Admission: 05/22/19 08:00 Date of discharge: 05/23/19 Attending physician: GUTIERREZ DORMAN 05/20/19 15:37 Consult to Physician [CONS] Routine Comment: Consulting Provider: KEVIN CHAPARRO Physician Instructions: Reason For Exam: SEIZURE disorder. [facility] Reason for admission: Seizure. Condition: Stable Hospital course: Patient presented to the office, and had seizure activity , sent to the ED, and had another set of Seizure activity, she was admitted treated accordingly, seen in consult by Neurology, whose advice was considered in disposition.Patient seen, examined, resting in bed, denies any new issues at this time. She will be d/c home, and follow up with neurology. she had EEG. Disposition: TO HOME OR SELFCARE - Discharge Diagnoses (1) Uncontrolled seizures Status: Chronic Qualifiers: Convulsion type: unspecified Qualified Code(s): R56.9 - Unspecified convulsions (2) Crohns disease Status: Chronic Comment: follow up with GI. (3) Weakness Status: Resolved Core Measure Documentation - Palliative Care Palliative Care/ Comfort Measures: Not Applicable - Core Measures Any of the following diagnoses?: none Exam - Constitutional Vitals: Temp Pulse Resp BP Pulse Ox 97.9 F 93 H 16 111/72 95 05/23/19 17:04 05/23/19 17:04 05/23/19 17:04 05/23/19 17:04 05/23/19 17:04 General appearance: Present: no acute distress, well-nourished - EENT Eyes: Present: PERRL ENT: hearing intact, clear oral mucosa - Neck Neck: Present: supple, normal ROM - Respiratory Respiratory effort: normal Respiratory: bilateral: CTA - Cardiovascular Heart Sounds: Present: S1 & S2. Absent: rub, click - Extremities Extremities: pulses symmetrical, No edema Peripheral Pulses: within normal limits - Abdominal General gastrointestinal: Present: soft, non-tender, non-distended, normal bowel sounds Female genitourinary: Present: deferred - Rectal Rectal Exam: deferred - Integumentary Integumentary: Present: clear, warm, dry - Musculoskeletal Musculoskeletal: gait normal, strength equal bilaterally - Psychiatric Psychiatric: appropriate mood/affect, intact judgment & insight - Neurologic Neurologic: CNII-XII intact, moves all extremities Plan Activity: no restrictions Diet: regular Follow up with: MISTI HELMSANTA ANA MD JACKIE [Primary Care Provider] - 3-5 Days
== END 2019-05-23 19:30 | disposition home or self-care (01) | DRG 101 ==
LOC: ED 13:28 → 3A 15:36 → OBSVTOIN 05-22 08:00
PROVIDERS: ADMIT Internal Medicine Hematology & Oncology; ATTEND Internal Medicine Hematology & Oncology
DX: G40.909 Epilepsy, unspecified, not intractable, without status epilepticus (principal); K21.9 Gastro-esophageal reflux disease without esophagitis; G43.909 Migraine, unspecified, not intractable, without status migrainosus; K50.90 Crohn's disease, unspecified, without complications; J45.909 Unspecified asthma, uncomplicated; Z90.49 Acquired absence of other specified parts of digestive tract; Z91.041 Radiographic dye allergy status; Z91.040 Latex allergy status
CPT/HCPCS: 36415; 80048; 80164; 81001; 81025; 82550; 83735; 85027; 94640; 94760; 95819; G0378; A9270-GY